=== PATIENT | male | born 1965 | race Caucasian/White ===

== ENCOUNTER 2018-04-10 10:45 | Inpatient (IN) ==
--- NOTE | 2018-04-10 11:12 | ED ---
HPI General Chief Complaint: Psychiatric Symptoms Stated Complaint: Psych Eval/VCSO Time Seen by Provider: 04/10/18 11:06 Source: patient Mode of arrival: ambulatory Limitations: no limitations History of Present Illness HPI Narrative: The patient is a 52-year-old male who presents to the emergency department for psychiatric evaluation as a Lowery act. The patient has a history of schizoaffective disorder depressive type and is followed by his psychiatrist in [facility]. Patient has been taking Invega for his schizoaffective disorder as directed, last dose last night. However, the patient was working in the [employer] yesterday when he had difficulties with the [employer], states he had a difficult day. The patient then had difficulty sleeping last night. The patient then had thoughts of suicide, plans on taking a bottle of aspirin and then going to his RV and falling asleep. The patient does have a previous history of a suicide attempt by taking pills in [facility], states he had his stomach pumped in [place]. The patient also thinks that he is under harassment by a which. Patient does admit to delusions and auditory hallucinations. Symptoms are moderate and progressive. He denies any alcohol use or illicit drug use. MD complaint: suicidal ideation Onset (ago): day(s) Duration: intermittent History of same: Yes Relieving factors: none Exacerbating factors: other Context: other Associated psychiatric symptoms: suicidal ideation, auditory hallucinations and delusions Associated symptoms: insomnia Treatments prior to arrival: placed on mental health hold If self harm: admits thoughts of self harm and has plan Related Data Home Medications Medication Instructions Recorded Confirmed metformin 1,000 mg PO DAILY 04/10/18 04/10/18 paliperidone [Invega] 6 mg PO QAM 04/10/18 04/10/18 Allergies Allergy/AdvReac Type Severity Reaction Status Date / Time haloperidol Allergy Unknown Seizures Verified 04/10/18 10:53 Review of Systems ROS: all other systems reviewed are negative [facility] Medical History Medical History Bipolar disorder (Acute) Diabetes (Acute) Schizoaffective disorder (Acute) Surgical History Surgical History History of knee replacement (Acute) Social History Social History Substance History: Past History Second Hand Smoke Exposure: No Smoking Status: Never smoker How Often Do You Have a Drink Containing Alcohol: Never Recent Travel in [facility] within the Last 8 Weeks: No Recent Out of Country Travel within the Last 8 Weeks: No Exam Narrative Exam Narrative: GENERAL: Awake, alert, pleasant 52-year-old male who appears his stated age and is in no acute respiratory distress. SKIN: Focused skin assessment warm/dry. HEAD: Atraumatic. Normocephalic. EYES: Pupils equal and round. No scleral icterus. No injection or drainage. ENT: No nasal bleeding or discharge. Mucous membranes pink and moist. NECK: Trachea midline. No JVD. CARDIOVASCULAR: Regular rate and rhythm. No murmur appreciated. RESPIRATORY: No accessory muscle use. Clear to auscultation. Breath sounds equal bilaterally. GASTROINTESTINAL: Abdomen soft, non-tender, nondistended. MUSCULOSKELETAL: No obvious deformities. No clubbing. No cyanosis. No edema. NEUROLOGICAL: Awake and alert. No obvious cranial nerve deficits. Motor grossly within normal limits. Normal speech. Nonfocal. Oriented 4. Follows commands without difficulty. PSYCHIATRIC: Slightly pressured speech. Tangential conversation. Course Initial Documented Vital Signs Temperature 97.9 F 04/10/18 10:54 Pulse Rate 68 04/10/18 10:54 Respiratory Rate 16 04/10/18 10:54 Blood Pressure 139/83 04/10/18 10:54 Pulse Oximetry 99 04/10/18 10:54 Last Documented Vital Signs Temperature 97.8 F 04/12/18 05:36 Pulse Rate 72 04/12/18 05:36 Respiratory Rate 17 04/12/18 05:36 Blood Pressure 111/61 04/12/18 05:36 Pulse Oximetry 96 04/12/18 05:36 Medical Decision Making MDM Narrative Medical decision making narrative: Labs are drawn and sent. Psychiatric evaluation was ordered. Medical Screen Exam Complete: Yes Emergency Medical Condition: Yes Differential Diagnosis Differential Diagnosis: Differential diagnosis includes schizoaffective disorder , schizophrenia, bipolar affective disorder, depression, substance-induced mood disorder, alma. Lab Data Lab results reviewed: Yes I reviewed the patient's lab results. Lab results narrative: Tox screen is positive for cannabinoids Result diagrams: 04/10/18 11:04 04/10/18 11:04 Lab Results 04/10/18 04/10/18 04/10/18 Range/Units 11:04 11:04 11:26 WBC 7.1 (4.0-11.0) th/mm3 RBC 4.93 (4.50-5.90) mil/mm3 Hgb 16.0 (13.0-17.0) gm/dL Hct 47.5 (39.0-51.0) % MCV 96.3 (80.0-100.0) fL MCH 32.4 (27.0-34.0) pg MCHC 33.6 (32.0-36.0) % RDW 13.3 (11.6-17.2) % Plt Count 184 (150-450) th/mm3 MPV 8.8 (7.0-11.0) fL Neut % (Auto) 54.9 (16.0-70.0) % Lymph % (Auto) 32.1 (9.0-44.0) % [place] % (Auto) 10.7 H (0.0-8.0) % Eos % (Auto) 1.5 (0.0-4.0) % Baso % (Auto) 0.8 (0.0-2.0) % Neut # (Auto) 3.9 (1.8-7.7) th/mm3 Lymph # (Auto) 2.3 (1.0-4.8) th/mm3 [place] # (Auto) 0.8 (0.0-0.9) th/mm3 Eos # (Auto) 0.1 (0.0-0.4) th/mm3 Baso # (Auto) 0.1 (0.0-0.2) th/mm3 WBC Differential . Differential Comment Auto diff final Sodium 141 (136-145) meq/L Potassium 4.2 (3.5-5.1) meq/L Chloride 107 (98-107) meq/L Carbon Dioxide 25.8 (21.0-32.0) meq/L Anion Gap 8 (5-15) meq/L BUN 15 (7-18) mg/dL Creatinine 1.06 (0.60-1.30) mg/dL Estimated GFR 73 L (>89) mL/min Random Glucose 98 (74-106) mg/dL Calcium 9.7 (8.5-10.1) mg/dL Total Bilirubin 0.5 (0.2-1.0) mg/dL AST 33 (15-37) U/L ALT 62 (12-78) U/L Alkaline Phosphatase 98 (45-117) U/L Total Protein 7.7 (6.4-8.2) g/dL Albumin 4.6 (3.4-5.0) g/dL TSH 0.997 (0.358-3.740) uIU/mL Urine Opiates Screen Neg (Neg) Ur Barbiturates Screen Neg (Neg) Ur Amphetamines Screen Neg (Neg) U Benzodiazepines Scrn Neg (Neg) Urine Cocaine Screen Neg (Neg) U Cannabinoids Screen Pos H (Neg) Serum Alcohol Less than 3 (0-5) mg/dL Discharge Plan Discharge Disposition Patient Disposition: 30 Still Patient Discharge Condition Condition: Stable Discharge Details Diagnosis: Schizoaffective disorder Physicians Team ED Provider: Chauncey Rosado Primary Care Provider: Suresh Stein Attending Provider: Sandeep Carrion Discharge Interventions Interventions: ED Discharge Assessment Last Done: 04/11/18 11:36 Vital Signs Last Done: 04/10/18 23:43 Status ED Status: Discharged Discharge Information Discharge Date/Time: 04/11/18 11:37
[2018-04-10 11:33] LABS: Baso # (Auto) 0.1 th/mm3 (0.0-0.2); Baso % (Auto) 0.8 % (0.0-2.0); Eos # (Auto) 0.1 th/mm3 (0.0-0.4); Eos % (Auto) 1.5 % (0.0-4.0); Hematocrit 47.5 % (39.0-51.0); Lymph # (Auto) 2.3 th/mm3 (1.0-4.8); Lymph % (Auto) 32.1 % (9.0-44.0); Mean Corpuscular HGB Conc 33.6 % (32.0-36.0); Mean Corpuscular Hemoglobin 32.4 pg (27.0-34.0); Mean Corpuscular Volume 96.3 fL (80.0-100.0); Mean Platelet Volume 8.8 fL (7.0-11.0); Mono # (Auto) 0.8 th/mm3 (0.0-0.9); Mono % (Auto) 10.7 % (0.0-8.0); Neut # (Auto) 3.9 th/mm3 (1.8-7.7); Neut % (Auto) 54.9 % (16.0-70.0); Platelet Count 184 th/mm3 (150-450); Red Blood Count 4.93 mil/mm3 (4.50-5.90); Red Cell Distribution Width 13.3 % (11.6-17.2); White Blood Count 7.1 th/mm3 (4.0-11.0)
[2018-04-10 11:57] LABS: Albumin 4.6 g/dL (3.4-5.0); Anion Gap 8 meq/L (5-15); Aspartate Aminotransferase 33 U/L (15-37); Blood Urea Nitrogen 15 mg/dL (7-18); Calcium 9.7 mg/dL (8.5-10.1); Carbon Dioxide 25.8 meq/L (21.0-32.0); Chloride 107 meq/L (98-107); Glomerular Filtration Rate 73 mL/min (>89); Glucose,Random 98 mg/dL (74-106); Potassium 4.2 meq/L (3.5-5.1); Sodium 141 meq/L (136-145)
[2018-04-10 11:59] LABS: Alanine Aminotransferase 62 U/L (12-78)
[2018-04-10 12:02] LABS: Amphetamine Screen,Urine Neg (Neg); Barbiturate Screen,Urine Neg (Neg); Cannabinoid Screen,Urine Pos (Neg); Cocaine Screen,Urine Neg (Neg)
[2018-04-10 12:04] LABS: Opiate Screen,Urine Neg (Neg)
[2018-04-10 12:08] LABS: Alkaline Phosphatase 98 U/L (45-117); Thyroid Stimulating Hormone 0.997 uIU/mL (0.358-3.740); Total Protein 7.7 g/dL (6.4-8.2)
[2018-04-11] MEDS ORDERED: Bisacodyl 10 MG Supp RECTAL PRN (09:13)
[2018-04-11] MEDS ORDERED: Aluminum/Magnesium/Simethacone Susp 30 ML UDC PO PRN (09:13)
--- NOTE | 2018-04-11 17:12 | P.HPPSY ---
Provisional Diagnosis Admission Date: April 11, 2018 11:50 Rumford I.: Schizoaffective disorder, bipolar type, anxiety Rumford II.: Deferred Rumford III.: DM Competence Certification of Person's Competence To Provide Express and Informed Consent I have personally examined Nico Meyer, a person being served at [facility] on, April 11, 2018 1656. Express and informed consent means consent voluntarily given in writing, by a competent person, after sufficient explanation and disclosure of the subject matter involved to enable the person to make a knowing and willful decision without any element of force, fraud, deceit, duress, or other form of constraint or coercion. This person is 18 years of age or older, is not now known to be incompetent to consent to treatment with a guardian advocate, and does not have a health care surrogate or proxy currently making medical treatment decisions. I have found this person to be one of the following: [x] Competent to provide express and informed consent, as defined above, for voluntary admission to this facility and is competent to provide express and informed consent for treatment. He/she has the consistent capacity to make well reasoned, willful, and knowing decisions concerning his or her medical or mental health treatment. The person fully and consistently understands the purpose of the admission for examination/placement and is fully capable of personally exercising all rights assured under [place] Incompetent to provide express and informed consent to voluntary admission, and this is incompetent to provide express and informed consent to treatment. The person must be transferred to involuntary status and a petition for a guardian advocate filed with the Circuit Court. [] Refusing to provide express and informed consent to voluntary admission but is competent to provide express and informed consent for treatment. The person must be discharged or transferred to involuntary status. Form shall be completed within 24 hours of a person's arrival at the receiving facility and filed in the clinical record of each person: 1. Admitted on a voluntary basis 2. Permitted to provide express and informed consent to his/her own treatment 3. Allowed to transfer from involuntary to voluntary status 4. Prior to permitting a person to consent to his or her own treatment after having been previously found incompetent to consent to treatment. History of Present Illness Capacity: Has capacity - Inpatient Certification The patient is a 52-year-old man, domiciled with his mother in [place], single, unemployed, supported by [facility], with a psychiatric history of schizoaffective disorder, anxiety, multiple psychiatric admissions, last hospitalization was about 7 years ago in [place], outpatient psychiatric care in [facility], he is in Invega 6 mg daily, medical history of diabetes mellitus, who presents to the emergency department for psychiatric evaluation as a Lowery act. On psychiatric evaluation the patient is cooperative, but oddly related. 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 The patient then had difficulty sleeping last night. The patient then had thoughts of suicide, plans on taking a bottle of aspirin and then going to his RV and falling asleep. He says that the reason to be a stress is that witches have been interfering with his daily activities. "Witches are getting inside my mind and putting but thoughts". He says that these back woman's are destroying his brain. He is has some insight that these are delusional thoughts, but he cannot get rid of them, and at night he becomes quite anxious and has suicidal thoughts. Patient was to be admitted for psychiatric stabilization and safety. Denies visual and auditory hallucinations at the moment. PPHx: psychiatric history of schizoaffective disorder, anxiety, multiple psychiatric admissions, last hospitalization was about 7 years ago in [place] , outpatient psychiatric care in [facility], he is in Invega 6 mg daily, PMHx: medical history of diabetes mellitus, Substance Hx: Occasional use of Family Hx: No family psychiatric history Social Hx: Patient was born and raised in [place], he lives in [place] with his mother, his single, unemployed, supported by [facility] Estimated Total Length of Stay (Days): 7 Plans for Post Hospital Care: Home [facility] - History History Provided By: Patient, Medical Record - Medical History Medical History: Medical History (Last Updated 04/10/18 @ 10:57 by Carmen Covington) Bipolar disorder Diabetes Schizoaffective disorder - Surgical History Surgical History: Surgical History (Last Updated 04/10/18 @ 11:03 by Carmen Covington) History of knee replacement - Tobacco History Second Hand Smoke Exposure: No Smoking Status: Never smoker - Alcohol History How Often Do You Have a Drink Containing Alcohol: Never - Substance Use History Substance History: Past History - Substance Use Type Marijuana Status: Active Route Used: Inhalation Frequency: "Not very often, maybe a couple times a month" Last Used: 03/10/18 Reason for Use: Calm Down, Feels Good, Get High Comment: Patient states "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 Patient reports past history of substance abuse; heroine, methamphetamine, marijuana, LSD, mushrooms, cocaine, crack, crystal, PCP. Patient reports previous IV use. Patient reports not using any substances, including beer in over 8 years. Patient states he quit smoking cigarettes 5 years ago. Patient states he has "done allegaga...no one know about it, but I've done it". - Travel History Recent Travel in the [place] Within the Last 8 Weeks: No Recent Travel Out of the Country Within the Last 8 Weeks: No - Immunization History Tetanus Immunization: Unsure Hx Influenza Vaccine This Season: No Medications and Allergies Active Medications: Active Medications Al Hydrox/Mg Hydrox/Simethicone (Mag-Al Plus Susp Liq) 30 ml PO Q6H PRN PRN Reason: DYSPEPSIA Al Hydroxide/Mg Hydroxide (Milk Of Magnesia Liq) 30 ml PO Q12H PRN PRN Reason: Mild Constipation Bisacodyl (Dulcolax Supp) 10 mg RECTAL DAILY PRN PRN Reason: SEVERE CONSITIPATION Lactulose (Lactulose Liq) 30 ml PO DAILY PRN PRN Reason: SEVERE CONSITIPATION Metformin HCl (Glucophage) 1,000 mg PO DAILY [facility] Last Admin: 04/11/18 15:23 Dose: 1,000 mg Paliperidone Palmitate (Invega Er) 6 mg PO DAILY [facility] Last Admin: 04/11/18 15:24 Dose: 6 mg Senna/Docusate Sodium (Estephania-Colace) 1 tab PO BID [facility] Sennosides (Senokot) 17.2 mg PO Q12H PRN PRN Reason: Moderate Constipation Allergies Allergy/AdvReac Type Severity Reaction Status Date / Time haloperidol Allergy Unknown Seizures Verified 04/10/18 10:53 Home Medications Medication Instructions Recorded Confirmed Type metformin 1,000 mg PO DAILY 04/10/18 04/10/18 History paliperidone [Invega] 6 mg PO QAM 04/10/18 04/10/18 History Results - Labs CBC & Chem 7: 04/10/18 11:04 04/10/18 11:04 Exam Vital signs: Vital Signs 04/10/18 17:59 04/10/18 23:43 04/11/18 13:45 Temperature 97.9 F 97.6 F Pulse Rate 85 76 76 Respiratory Rate 16 18 17 Blood Pressure 137/71 126/58 L 124/73 Pulse Oximetry 95 96 96 Intake & Output 04/10/18 04/11/18 04/11/18 18:59 06:59 18:59 Weight 99.79 kg 92.9 kg Other: Date of Last Bowel Movement 04/10/18 Weight On Admission 92.9 kg Mental Status Examination Appearance: Appropriate Consciousness: Alert Orientation: x4 Motor Activity: Normal gait Speech: Unremarkable Language: Adequate Fund of Knowledge: Adequate Attention and Concentration: Adequate Memory: Unremarkable Mood: Angry Affect: Irritable Thought Process & Associations: Intact Thought Content: Bizarre thinking, Delusional Hallucination Type: None Delusion Type: Bizarre, Paranoid Suicidal Ideation: Yes Suicidal Plan: No Suicidal Intention: No Homicidal Ideation: No Homicidal Plan: No Homicidal Intention: No Insight: Poor Judgment: Poor Assessment and Plan - Assessment (1) Schizoaffective disorder Code(s): F25.9 - Schizoaffective disorder, unspecified Status: Acute - Plan Plan: Estimated LOS: [] days On psychiatric evaluation today the patient presents acutely psychotic, with delusions of being followed by "witches", wide bizarre and paranoid. He also reports obsessive thoughts of committing suicide, even though he denies suicidal intentions or plan. This is a patient with a psychiatric history of schizoaffective disorder, multiple psychiatric admissions, previous suicide attempts, he has outpatient care in [facility]. Given his level of psychosis and suicidal thoughts, the patient meets criteria for psychiatric admission for stabilization and safety. I will restart his Invega 6 mg, plan will be to raised this medication to 9 mg. We will start clonazepam 0.5 mg twice daily for his anxiety. Trazodone 50 mg at bedtime to sleep. He will sign voluntary admission Justification for Continued Inpatient Stay: Psychiatric admission for stabilization (1) Schizoaffective disorder Qualifiers: Schizoaffective disorder type: unspecified Qualified Code(s): F25.9 - Schizoaffective disorder, unspecified
[2018-04-11] MEDS: Senna/Docusate Sodium 8.6/50 MG Tablet PO SCH (21:36)
[2018-04-12] MEDS: Senna/Docusate Sodium 8.6/50 MG Tablet PO SCH ×2 (09:39→21:29)
[2018-04-12] MEDS ORDERED: clonazePAM 0.5 MG Tablet PO PRN (13:17)
[2018-04-12] MEDS ORDERED: Divalproex 500 MG DR Tablet PO ONE (13:30)
--- NOTE | 2018-04-12 21:54 | P.PNPSY ---
Subjective Remarks: Patient seen for follow, chart reviewed. Discussion nursing staff reported the patient denying any suicide ideations. Patient was found participating group noted become cooperative. Patient states that he was suicidal when he first arrived and feeling that she has been haunted by witches. He states that things that happened feels that it is which is causing all his problems "hanks torment me". Patient states that he has felt that he just killed himself he would be better off and that they will he will not be bothered by these which is anymore. Patient reports having decreased sleep recently, and his mood has been "pretty good" stating that he is stabilized on his medications. Patient stated he has been having a lot of racing thoughts and states that he used to hear the TV talks to him. Patient is vague about auditory hallucinations today. Review of Systems All other systems reviewed negative except as stated in HPI Mental Status Examination Appearance: Appropriate Consciousness: Alert Orientation: x4 Motor Activity: Normal gait Speech: Unremarkable Language: Adequate Fund of Knowledge: Adequate Attention and Concentration: Adequate Memory: Unremarkable Mood: Anxious Affect: Labile, Anxious Thought Process & Associations: Intact Thought Content: Bizarre thinking, Delusional Hallucination Type: None Delusion Type: Bizarre, Paranoid Suicidal Ideation: Yes Suicidal Plan: No Suicidal Intention: No Homicidal Ideation: No Homicidal Plan: No Homicidal Intention: No Insight: Poor Judgment: Poor Assessment and Plan - Assessment (1) Schizoaffective disorder Code(s): F25.9 - Schizoaffective disorder, unspecified Status: Acute - Plan Plan: Patient this time continues with bizarre delusions, recent suicidal ideations and vague auditory hallucinations. We will increase paliperidone to 9 mg p.o. daily for psychosis, start Depakote 1000 mg p.o. at bedtime for mood stabilization. Continue rest of medications. We will continue to monitor mood and behavior. Discharge planning a progress. Justification for Continued Inpatient Stay: At risk for further decompensation if at lower level of care. (1) Schizoaffective disorder Qualifiers: Schizoaffective disorder type: unspecified Qualified Code(s): F25.9 - Schizoaffective disorder, unspecified
[2018-04-13] MEDS: Senna/Docusate Sodium 8.6/50 MG Tablet PO SCH ×2 (09:31→20:25)
--- NOTE | 2018-04-13 14:00 | P.PNPSY ---
Subjective Remarks: Pt seen and discussed with staff. He was admitted under a BA due to psychosis and agitation and SI with plan to OD on aspirin. He has been compliant with medication and is tolerating it without side effects. He has been complaining of thought insertation on the unit (witches putting thoughts in his mind). He has been isolative on unit and signed an ROR. He reports that he is tolerating increase in Invega without side effects. Mental Status Examination Appearance: Appropriate Consciousness: Alert Orientation: x4 Motor Activity: Normal gait Speech: Unremarkable Language: Adequate Fund of Knowledge: Adequate Attention and Concentration: Adequate Memory: Unremarkable Mood: Anxious Affect: Labile, Anxious Thought Process & Associations: Intact Thought Content: Bizarre thinking, Delusional Hallucination Type: None Delusion Type: Bizarre, Paranoid Suicidal Ideation: No (denies today) Suicidal Plan: No Suicidal Intention: No Homicidal Ideation: No Homicidal Plan: No Homicidal Intention: No Insight: Fair Judgment: Impulsive Assessment and Plan - Assessment (1) Schizoaffective disorder Code(s): F25.9 - Schizoaffective disorder, unspecified Status: Acute - Plan Plan: Pt is improving. Continue current tx plan. Pt rescinded ROR during rounds. Justification for Continued Inpatient Stay: risk of decompensation (1) Schizoaffective disorder Qualifiers: Schizoaffective disorder type: unspecified Qualified Code(s): F25.9 - Schizoaffective disorder, unspecified
[2018-04-13] MEDS: Divalproex 500 MG ER Tablet PO SCH (20:25)
[2018-04-14] MEDS: Senna/Docusate Sodium 8.6/50 MG Tablet PO SCH ×2 (08:36→21:14)
--- NOTE | 2018-04-14 11:49 | P.PNPSY ---
Subjective Remarks: Medical record reviewed and discussed with nursing staff. SUKH Campbell and I met with patient in his room. Patient states that the Invega was increased from 6mg to 9 mg and Depakote was added. He states that the auditory hallucination have subsided and that he is feeling alot better. He continues to be suspicious and paranoid. Patient encouraged to participate in unit activities and spend time outside of his room. Review of Systems All other systems reviewed negative except as stated in HPI Mental Status Examination Appearance: Appropriate Consciousness: Alert Orientation: x4 Motor Activity: Normal gait Speech: Unremarkable Language: Adequate Fund of Knowledge: Adequate Attention and Concentration: Adequate Memory: Unremarkable Mood: Anxious Affect: Labile, Anxious Thought Process & Associations: Intact Thought Content: Bizarre thinking, Delusional Hallucination Type: None Delusion Type: Bizarre, Paranoid Suicidal Ideation: No (denies today) Suicidal Plan: No Suicidal Intention: No Homicidal Ideation: No Homicidal Plan: No Homicidal Intention: No Insight: Fair Judgment: Impulsive Assessment and Plan - Assessment (1) Schizoaffective disorder Code(s): F25.9 - Schizoaffective disorder, unspecified Status: Acute - Plan Plan: continue current treatment plan. Justification for Continued Inpatient Stay: Moving patient to a less restrictive environment may result in his decompensation. (1) Schizoaffective disorder Qualifiers: Schizoaffective disorder type: unspecified Qualified Code(s): F25.9 - Schizoaffective disorder, unspecified
[2018-04-14] MEDS: Divalproex 500 MG ER Tablet PO SCH (21:13)
[2018-04-15] MEDS: Senna/Docusate Sodium 8.6/50 MG Tablet PO SCH ×2 (08:49→21:43)
[2018-04-15 17:43] VITALS: O2SAT 95
[2018-04-15] MEDS: Divalproex 500 MG ER Tablet PO SCH (21:43)
--- NOTE | 2018-04-15 22:59 | P.PNPSY ---
Subjective Remarks: Patient seen for follow, chart reviewed. Discussion nursing staff reported the patient noted be slightly paranoid over the weekend but compliant with treatment. Patient was found participating group noted B, cooperative. Patient states that it is feeling "pretty good" stating that he has been going to groups which he states he been having with his anxiety and anger. Patient states that he feels he is bisexual was having some conflict with whom he is open about this with. Patient states that he wants to live no longer endorsing suicidal ideations and reports decrease in bizarre delusions stating "twitches are not bothering me". Review of Systems All other systems reviewed negative except as stated in HPI Mental Status Examination Appearance: Appropriate Consciousness: Alert Orientation: x4 Motor Activity: Normal gait Speech: Unremarkable Language: Adequate Fund of Knowledge: Adequate Attention and Concentration: Adequate Memory: Unremarkable Mood: Good Affect: Appropriate Thought Process & Associations: Intact Thought Content: Appropriate Hallucination Type: None Delusion Type: Paranoid Suicidal Ideation: No (denies today) Suicidal Plan: No Suicidal Intention: No Homicidal Ideation: No Homicidal Plan: No Homicidal Intention: No Insight: Fair Judgment: Impulsive Assessment and Plan - Assessment (1) Schizoaffective disorder Code(s): F25.9 - Schizoaffective disorder, unspecified Status: Acute - Plan Plan: Patient noted with improved mood no longer endorsing suicidal ideation reporting minimal bizarre delusions in which his. Valproic acid level ordered for this evening prior to evening dose. Patient likely for discharge tomorrow. Continue current treatment. Continue to monitor mood and behavior. Discharge planning in progress. Justification for Continued Inpatient Stay: At risk of further decompensation at lower level of care. (1) Schizoaffective disorder Qualifiers: Schizoaffective disorder type: unspecified Qualified Code(s): F25.9 - Schizoaffective disorder, unspecified
[2018-04-16 05:41] VITALS: BP 117/75; PULSE 77; RESP 16; TEMP 97.5
[2018-04-16] MEDS: Senna/Docusate Sodium 8.6/50 MG Tablet PO SCH (08:21)
--- NOTE | 2018-04-17 01:03 | P.DSPSY ---
Psychiatry Discharge Summary Inpatient Psychiatric care?: Yes Advance Directives: Yes Mental Health Advance Directive: No Health Care Proxy: No - Admission Admission Date: April 11, 2018 11:50 - Admission Diagnosis (1) Schizoaffective disorder Code(s): F25.9 - Schizoaffective disorder, unspecified Brief History: The patient is a 52-year-old man, domiciled with his mother in [place], single, unemployed, supported by [facility], with a psychiatric history of schizoaffective disorder, anxiety, multiple psychiatric admissions, last hospitalization was about 7 years ago in [place], outpatient psychiatric care in [facility], he is in Invega 6 mg daily, medical history of diabetes mellitus, who presents to the emergency department for psychiatric evaluation as a Lowery act. On psychiatric evaluation the patient is cooperative, but oddly related. He says that he is here because he was working in the lawn yesterday when he had difficulties with the sprinkler, states he had a difficult day. The patient then had difficulty sleeping last night. The patient then had thoughts of suicide, plans on taking a bottle of aspirin and then going to his RV and falling asleep. He says that the reason to be a stress is that witches have been interfering with his daily activities. "Witches are getting inside my mind and putting but thoughts". He says that these back woman's are destroying his brain. He is has some insight that these are delusional thoughts, but he cannot get rid of them, and at night he becomes quite anxious and has suicidal thoughts. Patient was to be admitted for psychiatric stabilization and safety. Denies visual and auditory hallucinations at the moment. PPHx: psychiatric history of schizoaffective disorder, anxiety, multiple psychiatric admissions, last hospitalization was about 7 years ago in [place] , outpatient psychiatric care in [facility], he is in Invega 6 mg daily, PMHx: medical history of diabetes mellitus, Substance Hx: Occasional use of Family Hx: No family psychiatric history Social Hx: Patient was born and raised in [place], he lives in [place] with his mother, his single, unemployed, supported by [facility] Tobacco Use In Past 30 Days: Yes How Often Do You Have a Drink Containing Alcohol: Never Hospital Course: Patient is a 52 y/o man, domiciled with mother, single, no children, unemployed on SSI, with past psychiatric history of schizoaffective disorder, anxiety disorder, with prior psychiatric admission, prior suicide attempts, with past medical history of DM who presented to the ED for psychiatric evaluation under Lowery Act for suicidal ideation and bizarre delusions regarding witches who cause his problems which patient was admitted to the inpatient psychiatry unit for further evaluation and management. Patient was restarted on medication regimen to target mood and psychotic symptoms which he tolerated well with no notable adverse drug reactions. He was observed by staff not to have had any behavioral disturbances, denied any suicidal ideation and denied any homicidal ideations. Patient was able to reach and maintain stable mood with no longer endorsing perceptual disturbances and noted with improved organized thought process during admission and was noted to participate with staff adequately and in groups and activities. Patient was noted to participate in self-care, engaged with staff and maintaining adequate hygiene. Patient reported feeling good, future oriented and motivated to engage in continued outpatient treatment and return back to his assisted living facility. Treatment team was able to set up outpatient follow-up appointments and get patient reconnected to the FACT team which patient can continue for continuity of care. Upon discharge patient stated feeling "good" reported feeling well with treatment, agreed to continue treatment. Patient from a mental health perspective no longer met criteria for continued inpatient level of care. Patient denied any SI, HI, perceptual disturbances or delusions. Weighing the acute, chronic, and protective factors and based on the available evidence, I sensor technician to a reasonable degree of medical certainty that the patient is at low imminent risk of harm to self or others for mental illness as defined under the Lowery act and her level of function is adequate as observed on the unit for planned level of outpatient care. Patient was counseled regarding warning signs for need to return to the psychiatric emergency room as part of the general safety plan. Patient advised to call 911 or go to nearest ED in case of emergency. Patient agrees with plan. - Discharge Discharge Date: 04/16/18 - Discharge Diagnosis (1) Schizoaffective disorder Code(s): F25.9 - Schizoaffective disorder, unspecified Status: Acute Discharge Disposition: Home - Discharge Instructions Discharge Diet: Heart Healthy Diet Activities You Can Perform: Regular- No Restrictions - Discharge Time > 30 minutes Mental Status Examination Appearance: Appropriate Consciousness: Alert Orientation: x4 Motor Activity: Normal gait Speech: Unremarkable Language: Adequate Fund of Knowledge: Adequate Attention and Concentration: Adequate Memory: Unremarkable Mood: Good Affect: Appropriate Thought Process & Associations: Intact Thought Content: Appropriate Hallucination Type: None Delusion Type: None Suicidal Ideation: No Suicidal Plan: No Suicidal Intention: No Homicidal Ideation: No Homicidal Plan: No Homicidal Intention: No Insight: Fair Judgment: Impulsive Discharge/Advance Care Plan - Results Vital Signs: Last Vital Signs Temp 97.5 F L 04/16/18 05:40 Pulse 77 04/16/18 05:40 Resp 16 04/16/18 05:40 BP 117/75 04/16/18 05:40 Pulse Ox 95 04/16/18 05:40 Lab Results: Laboratory Results TSH 0.997 uIU/mL (0.358-3.740) 04/10/18 11:04 Valproic Acid 54 mcg/mL (50-100) 04/15/18 19:51 Summary of Procedures: none Pending Results: None - Medications Number of antipsychotic medications at discharge: 1 - Discharge Care Plan Goals to Promote Your Health: * To prevent worsening of your condition and complications * To maintain your health at the optimal level Directions to Meet Your Goals: Take your medications as prescribed Follow your dietary instruction Follow activity as directed Keep your appointments as scheduled Take your immunizations and boosters as scheduled If your symptoms worsen call your PCP, if no PCP go to Urgent Care Center or Emergency Room For 12/02 questions related to your inpatient stay or results of tests pending at discharge, please contact Dr. Sandeep Carrion MD at Smoking is Dangerous to Your Health. Avoid second hand smoking (1) Schizoaffective disorder Qualifiers: Schizoaffective disorder type: unspecified Qualified Code(s): F25.9 - Schizoaffective disorder, unspecified (1) Schizoaffective disorder Qualifiers: Schizoaffective disorder type: unspecified Qualified Code(s): F25.9 - Schizoaffective disorder, unspecified
== END 2018-04-16 13:45 | disposition home or self-care (01) ==
LOC: NEPJ 10:45 → H260 04-11 11:50
PROVIDERS: ADMIT Student in an Organized Health Care Education/Training Program; ATTEND Student in an Organized Health Care Education/Training Program